=== PATIENT | female | born 1975 | race African-American/Black ===

== ENCOUNTER → 2024-09-21 | Day surgery (SDC) | payer OTHER ==
[~2024-09-21] MED LIST: FENTANYL CITRATE/PF 100MCG/2 ML INJ ONE; GLYCOPYRROLATE INJ 0.2 MG/ML VIAL ONE; HYOSCYAMINE SULFATE 0.5 MG/ML INJ ONE; LIDOCAINE HCL 2% LOCAL INJ 5 ML SDV VIAL INJ ONE; ONDANSETRON HCL INJ 2MG/ML 2ML 2 MG/ML VIAL ONE; PROPOFOL IV EMULSION 50 ML IV ONE
[2024-09-21] MEDS: LACTATED RINGER'S 1,000 ML ONE (12:35)
[2024-09-21 15:40] VITALS: TEMP 97.6
[2024-09-21 16:05] VITALS: BP 115/84; PULSE 85; RESP 18; O2SAT 99
[2024-09-24 06:12] LABS: ENDOMYSIAL ANTIBODIES, IGA Negative (Negative)
[2024-09-24 06:30] LABS: TISSUE TRANSGLUTAMINASE IGA AB <2 U/mL (0-3)
== END | disposition home or self-care (01) ==
LOC: OR 12:04
PROVIDERS: ATTEND Internal Medicine Gastroenterology
DX: D50.8 Other iron deficiency anemias (principal); K63.5 Polyp of colon; K31.7 Polyp of stomach and duodenum; K29.70 Gastritis, unspecified, without bleeding; K52.9 Noninfective gastroenteritis and colitis, unspecified; K31.89 Other diseases of stomach and duodenum; K20.90 Esophagitis, unspecified without bleeding; K62.89 Other specified diseases of anus and rectum; K64.8 Other hemorrhoids; Z71.89 Other specified counseling; Z71.3 Dietary counseling and surveillance; F43.10 Post-traumatic stress disorder, unspecified; F41.9 Anxiety disorder, unspecified; F32.A Depression, unspecified; Z86.69 Personal history of other diseases of the nervous system and sense organs
CPT/HCPCS: 43239; 43251; 45380; 45385; 81025; 82784; 83516; 86140; 86256; J1980; J2003; J2405; J2470; J2704; J3010; J7121; 45378